=== PATIENT | female | born 1955 | race Caucasian/White ===

== ENCOUNTER → 2025-06-19 10:46 | Outpatient (REF) | payer OTHER, SELFPAY | LOC: WDC 10:46 | PROVIDERS: ATTENDING PHYSICIAN Student in an Organized Health Care Education/Training Program | DX: Z12.31 Encounter for screening mammogram for malignant neoplasm of breast (principal) | CPT/HCPCS: 77063; 77067 ==

== ENCOUNTER → 2025-07-21 09:46 | Outpatient (REF) | payer OTHER, SELFPAY | LOC: WDC 09:46 | PROVIDERS: ATTENDING PHYSICIAN Student in an Organized Health Care Education/Training Program | DX: R92.8 Other abnormal and inconclusive findings on diagnostic imaging of breast (principal) | CPT/HCPCS: 76642 ==

== ENCOUNTER 2025-08-09 13:52 | Emergency (ER) | payer OTHER, SELFPAY ==
[2025-08-09 14:03] VITALS: BP 110/59
[2025-08-09 16:08] VITALS: BMI 21.1
--- NOTE | 2025-08-09 16:52 | ED.GENMED ---
History of Present Illness
General
Chief Complaint: Facial Problem
Source: patient
Exam Limitations: none
Time Seen by Provider: 08/09/25 16:28
Nursing documentation reviewed up to this point in time: agreed with
History of Present Illness
History of Present Illness:
Patient to emergency department for evaluation after falling out of bed. Patient states incident occurred overnight. She is not sure what caused her to fall out of bed. She hit her head and face on the floor. Was able to get herself up and back
into bed. She was evaluated in urgent care and advised to come to the emergency department for further evaluation. She has swelling and bruising to her right orbit and nose. She had a mild nosebleed earlier today. Brought self to the emergency
department for evaluation.
Past History
Past History
ED Past Medical History: HTN
Review of Systems
Review of Systems
Allergies reviewed?: Yes
All Other Systems: ROS reviewed and negative except as documented in HPI and ROS
Constitutional: Reports no symptoms
EENT: Reports no symptoms
Respiratory: Reports no symptoms
Cardiac: Reports no symptoms
ABD/GI: Reports no symptoms
: Reports no symptoms
Musculoskeletal: Reports joint pain (Pain to nose, bruising to right orbit and cheek)
Skin: Reports no symptoms
Neurological: Reports no symptoms
Psychiatric: Reports no symptoms
Phy Exam
General Physical Exam
General Presentation: well appearing and mild distress
General age: appears stated age
General Skin: warm and dry
General Habitus: normal
General Mental: alert
ENT Exam
ENT Exam: EOMI, TM's normal, neck supple and other (No active nasal bleeding noted. No septal hematoma noted)
Eye Exam
Eye Exam: PERRL, EOMI, conjunctiva normal and globe normal
Pulmonary Exam
Pulmonary Exam: no respiratory distress and chest non tender
Gastrointestinal Exam
Gastrointestinal Exam: non tender and soft
Neurological Exam
Neurological Exam: alert, oriented x3, CN II-XII intact, no motor deficits, no sensory deficits and speech normal
[place] Coma Scale
Eye Opening: Spontaneous
Verbal Response: Oriented
Motor Response: Obeys Commands
GCS Total Score: 15
Musculoskeletal Exam
Musculoskeletal Exam: full ROM and neuro vasc intact
Skin Exam
Skin Exam: normal color, warm/dry and no rash
Psychiatric Exam
Psychiatric Exam: normal mood/affect
Course
Orders/Labs/Results
Orders:
Orders
08/09/25 16:51
CT Head W/o Iv Contrast Urgent
Comment:
Reason For Exam: trauma
Facial Bones wo Contrast CT [CT Facial Bones W/o Iv Contras] Urgent
Comment:
Reason For Exam: trauma
Vital Signs
Initial and Last Documented VS:
Initial Vital Signs
Temp Pulse Resp BP Pulse Ox
98.0 F 88 16 110/59 96
08/09/25 14:03 08/09/25 14:03 08/09/25 14:03 08/09/25 14:03 08/09/25 14:03
Last Documented Vital Signs
Temp Pulse Resp BP Pulse Ox
98.4 F 75 18 138/54 100
08/09/25 19:07 08/09/25 19:07 08/09/25 19:07 08/09/25 19:07 08/09/25 19:07
*Radiology
Radiology exam reviewed: radiology read reviewed
*Pulse Oximetry
SaO2: 96
Oxygen Mode of Delivery: Room air
Patient hypoxic: no
*Critical Care Note
Total Time (30-74mins, 75-104mins- exclusive of procedures): Not Applicable
Update Note
Update Note:
Patient to emergency department for evaluation of head injury after falling out of bed overnight. She had hit her face on the floor. She complains of bruising pain and swelling to her nose and right side of her face. On exam she is awake alert
and oriented x 3. She denies any headache or dizziness. Vital signs are stable. CT of head and facial bones was completed. Head CT without acute findings. CT of facial bones confirms comminuted fracture to the nasal bone fracture of the
anterior maxillary spine. Discussed findings with her. She will be discharged home tonight. She will continue ice Tylenol/ibuprofen as needed pain. She was given the number for ENT she will call in the a.m. to schedule an appointment for
follow-up. She is given instructions on signs and symptoms to return to the emergency department she is agreeable to this plan.
ED Attending Note
-
Portions of this chart may have been created with voice recognition software.� Occasional wrong word or��sound alike� substitutions may have occurred due to the inherent limitations of voice recognition software.
Discharge Plan
Departure
Patient Disposition: Home (Routine Discharge)
Date of Disposition: 08/09/25
Time of Disposition: 18:58
Patient with high blood pressure during this ER visit?: No
Condition: Good
Covid-19: Not Applicable
Discharge Problem:
Head injury, Fracture of nasal bone
Instructions: Head injury in adults, Nose Fracture (DC), Cold therapy for pain
Referrals:
Toby Alex MD [Active, Otology] - Call in 1-3 days for appt
Rasheed Coyne MD, Resident [Family Provider, General]
Interventions
Interventions:
*General Assessment Last Done: 08/09/25 16:08
*Neglect/Abuse Screening Last Done: 08/09/25 14:03
*ED COVID-19 Vaccine History Last Done: 08/09/25 16:11
*ED Influenza Vaccine History Last Done: 08/09/25 16:11
[facility] Fall Risk Assessment Tool Last Done: 08/09/25 16:15
*Risk Screen - Suicide (C-SSRS) Last Done: 08/09/25 14:03
*Nursing Disposition Last Done: 08/09/25 19:07
ED- Neurological Assessment Last Done: 08/09/25 16:08
ED-Skin Assessment Last Done: 08/09/25 16:08
Discharge Date and Time
Discharge Date/Time: 08/09/25 19:08
Print Language: [place]
--- NOTE | 2025-08-09 19:05 | EDRN ---
Reviewed discharge instructions with patient. Verbalized understanding. Ambulated with steady gait to the lobby.
[2025-08-09 19:07] VITALS: BP 138/54
== END 2025-08-09 19:08 | disposition home or self-care (01) ==
LOC: EMR 13:52
PROVIDERS: EMERGENCY PHYSICIAN Emergency Medicine; FAMILY PHYSICIAN Student in an Organized Health Care Education/Training Program
DX: S02.2XXA Fracture of nasal bones, initial encounter for closed fracture (principal); S05.11XA Contusion of eyeball and orbital tissues, right eye, initial encounter; W06.XXXA Fall from bed, initial encounter
CPT/HCPCS: 99284; 70450; 70486